=== PATIENT | female | born 1955 | race African-American/Black ===

== ENCOUNTER 2021-05-07 11:21 | Inpatient (IN) | payer MEDICARE, MEDICAID ==
[~2021-05-07] VITALS: Ht 154.9 cm; Wt 64.0 kg
[~2021-05-07 11:21] MED LIST: ASPI-1450 PO; CITA-144 PO; ESTR-95 PO; FERR325T27 PO; MULT-1239 PO; SIMV-259 PO
[2021-05-07 12:46] LABS: BASOPHILS % (AUTO) 0.5 % (0.0-2.0); EOSINOPHILS % (AUTO) 0.2 % (1.0-6.0); HEMATOCRIT 29.3 % (36-46); HEMOGLOBIN 9.1 g/dL (12.0-16.0); LYMPHOCYTES % (AUTO) 24.3 % (22.0-44.0); MEAN CORPUSCULAR HEMOGLOBIN 21.9 pg (26.0-34.0); MEAN CORPUSCULAR VOLUME 71 fL (80-100); MONOCYTES % (AUTO) 12.6 % (2.0-9.0); NEUTROPHILS # (AUTO) 5.2 K/uL (1.8-7.7); NEUTROPHILS % (AUTO) 62.4 % (40.0-70.0); PLATELET COUNT (AUTO) 428 K/uL (150-450); RED BLOOD CELL COUNT(AUTO) 4.14 MIL/uL (4.00-5.20)
[2021-05-07 12:47] LABS: ANION GAP 15 mmol/L (8-16); CALCIUM, TOTAL 9.9 mg/dL (8.8-10.5); CARBON DIOXIDE 24 mmol/L (22-29); CHLORIDE 105 mmol/L (98-107); CREATININE 0.82 mg/dL (0.60-1.30); GLOMERULAR FILTR. RATE CALC > 60 mL/min (>60); GLUCOSE,RANDOM 83 mg/dL (70-110); POTASSIUM 3.4 mmol/L (3.5-5.1); SODIUM SERUM 144 mmol/L (136-145); UREA NITROGEN, BLOOD 23 mg/dL (7-18)
[2021-05-07 12:53] LABS: ALANINE AMINOTRANSFERASE 23 U/L (12-78); ALKALINE PHOSPHATASE 68 U/L (46-116); ASPARTATE AMINOTRANSFERASE 58 U/L (15-37); BILIRUBIN,TOTAL 1.5 mg/dL (0.1-1.0); TOTAL PROTEIN, SERUM 9.5 g/dL (6.4-8.2)
[2021-05-07] MEDS ORDERED: LORazepam 1 MG TABLET PO ONE (21:30)
[2021-05-08 06:37] LABS: COVID AG,FIA SOURCE NASOPHARYNGEAL
[2021-05-08] MEDS ORDERED: OLANZapine 5 MG TABLET PO ONE (11:00)
[2021-05-08] MEDS ORDERED: LORazepam 2 MG TABLET PO PRN (12:15)
[2021-05-08] MEDS ORDERED: ZOLPIDEM TARTRATE 5 MG TABLET PO PRN (12:15)
[2021-05-08 14:18] VITALS: BP 103/77
[2021-05-08 14:24] VITALS: BP 103/77
[2021-05-08] MEDS ORDERED: MAGNESIUM HYDROXIDE SUSPENSION 30 ML UDCUP PO PRN (15:30)
[2021-05-08] MEDS ORDERED: MAG HYDROX/AL HYDROX/SIMETH ES 30 ML SUSPENSION UDCUP PO PRN (15:30)
[2021-05-08] MEDS ORDERED: CloNIDine HCL 0.1 MG TABLET PO PRN (15:30)
[2021-05-08] MEDS ORDERED: DOCUSATE SODIUM 100 MG CAPSULE PO PRN (15:30)
[2021-05-08] MEDS ORDERED: ONDANSETRON HCL 4 MG TABLET PO PRN (15:30)
[2021-05-08] MEDS ORDERED: PETROLATUM,WHITE 28 GM JELLY TP PRN (15:30)
[2021-05-08] MEDS ORDERED: LOPERAMIDE HCL 2 MG CAPSULE PO PRN (15:30)
[2021-05-08] MEDS ORDERED: ALBUTEROL SULFATE HFA 90 MCG/PUFF 8 GM INHALER IH PRN (15:30)
[2021-05-08] MEDS ORDERED: GuaiFENesin/D-METHORPHAN [SUGAR-FREE] 200-20MG/10 ML SYRUP UDCUP PO PRN (15:30)
[2021-05-08] MEDS ORDERED: NICOTINE 14 MG/24 HOUR PATCH TD PRN (15:30)
[2021-05-08] MEDS: CITALOPRAM HYDROBROMIDE 20 MG TABLET PO SCH (17:00)
[2021-05-08 17:06] VITALS: BP 107/58
[2021-05-08 17:07] VITALS: BP 107/59
[2021-05-08] MEDS: FERROUS SULFATE 325 MG EC TABLET PO SCH (17:50)
[2021-05-08 19:32] VITALS: BP 107/61
[2021-05-08] MEDS ORDERED: POTASSIUM CHLORIDE 20 MEQ ER TABLET PO ONE (20:15)
[2021-05-08] MEDS: SIMVASTATIN 10 MG TABLET PO SCH (21:14)
[2021-05-08] MEDS: RisperiDONE 0.5 MG TABLET PO SCH (21:14)
[2021-05-09] MEDS: FERROUS SULFATE 325 MG EC TABLET PO SCH ×2 (06:51→16:50)
[2021-05-09 07:45] VITALS: BP 110/72
[2021-05-09] MEDS: CITALOPRAM HYDROBROMIDE 20 MG TABLET PO SCH (09:11)
[2021-05-09] MEDS: ASPIRIN 81 MG CHEWABLE TABLET PO SCH (09:11)
[2021-05-09 11:45] VITALS: BP 112/68
[2021-05-09 17:57] VITALS: BP 97/56
[2021-05-09] MEDS: SIMVASTATIN 10 MG TABLET PO SCH (20:37)
[2021-05-09] MEDS: RisperiDONE 0.5 MG TABLET PO SCH (20:37)
[2021-05-09 22:20] VITALS: BP 148/87
[2021-05-09] MEDS: IBUPROFEN 400 MG TABLET PO PRN (22:23)
[2021-05-10] MEDS: FERROUS SULFATE 325 MG EC TABLET PO SCH ×2 (06:46→17:21)
[2021-05-10] MEDS: ASPIRIN 81 MG CHEWABLE TABLET PO SCH (08:56)
[2021-05-10] MEDS: CITALOPRAM HYDROBROMIDE 20 MG TABLET PO SCH (08:56)
[2021-05-10 10:55] VITALS: BP 110/53
[2021-05-10] MEDS: OLANZapine 5 MG TABLET PO PRN (13:24)
[2021-05-10 16:08] VITALS: BP 121/78
[2021-05-10] MEDS: RisperiDONE 0.5 MG TABLET PO SCH (21:00)
[2021-05-10] MEDS: SIMVASTATIN 10 MG TABLET PO SCH (21:00)
[2021-05-11 04:58] VITALS: BP 135/70
[2021-05-11] MEDS: FERROUS SULFATE 325 MG EC TABLET PO SCH ×2 (06:42→16:38)
[2021-05-11] MEDS: CITALOPRAM HYDROBROMIDE 20 MG TABLET PO SCH (08:20)
[2021-05-11] MEDS: ASPIRIN 81 MG CHEWABLE TABLET PO SCH (08:20)
[2021-05-11] MEDS: OLANZapine 5 MG TABLET PO PRN (08:49)
[2021-05-11 09:23] VITALS: BP 111/61
[2021-05-11 16:00] VITALS: BP 100/69
[2021-05-11] MEDS: SIMVASTATIN 10 MG TABLET PO SCH (20:56)
[2021-05-11] MEDS: RisperiDONE 1 MG TABLET PO SCH (20:56)
[2021-05-12] MEDS: FERROUS SULFATE 325 MG EC TABLET PO SCH ×2 (06:46→16:46)
[2021-05-12] MEDS: ASPIRIN 81 MG CHEWABLE TABLET PO SCH (08:26)
[2021-05-12] MEDS: CITALOPRAM HYDROBROMIDE 20 MG TABLET PO SCH (08:26)
[2021-05-12] MEDS: OLANZapine 5 MG TABLET PO PRN (08:54)
[2021-05-12 09:00] VITALS: BP 100/59
[2021-05-12 16:12] VITALS: BP 109/76
[2021-05-12 19:23] VITALS: BP 110/70
[2021-05-12] MEDS: ACETAMINOPHEN 325 MG TABLET PO PRN (19:23)
[2021-05-12] MEDS: SIMVASTATIN 10 MG TABLET PO SCH (20:06)
[2021-05-12] MEDS: RisperiDONE 1 MG TABLET PO SCH (20:06)
[2021-05-12 20:23] VITALS: BP 107/72
[2021-05-13 00:55] VITALS: BP 128/82
[2021-05-13] MEDS: ZOLPIDEM TARTRATE 10 MG TABLET PO PRN (00:58)
[2021-05-13] MEDS: IBUPROFEN 400 MG TABLET PO PRN (00:58)
[2021-05-13] MEDS: OLANZapine 5 MG TABLET PO PRN ×2 (03:54→17:41)
[2021-05-13] MEDS ORDERED: DiphenhydrAMINE HCL 50 MG/ML VIAL ONE (04:43)
[2021-05-13] MEDS ORDERED: HALOPERIDOL LACTATE 5 MG/ML VIAL ONE (04:44)
[2021-05-13] MEDS ORDERED: HALOPERIDOL LACTATE 5 MG/ML VIAL IM ONE (04:45)
[2021-05-13] MEDS ORDERED: DiphenhydrAMINE HCL 50 MG/ML VIAL IM ONE (04:45)
[2021-05-13 05:15] VITALS: BP 122/71
[2021-05-13] MEDS: FERROUS SULFATE 325 MG EC TABLET PO SCH ×2 (06:46→17:41)
[2021-05-13 09:00] VITALS: BP 110/66
[2021-05-13] MEDS: ASPIRIN 81 MG CHEWABLE TABLET PO SCH (09:06)
[2021-05-13] MEDS: CITALOPRAM HYDROBROMIDE 20 MG TABLET PO SCH (09:06)
[2021-05-13 16:00] VITALS: BP 112/69
[2021-05-13] MEDS: SIMVASTATIN 10 MG TABLET PO SCH (20:47)
[2021-05-13] MEDS: RisperiDONE 1 MG TABLET PO SCH (20:48)
[2021-05-13] MEDS: DIVALPROEX SODIUM 250 MG DR TABLET PO SCH (20:48)
[2021-05-14] MEDS: FERROUS SULFATE 325 MG EC TABLET PO SCH ×2 (07:00→17:24)
[2021-05-14] MEDS: ASPIRIN 81 MG CHEWABLE TABLET PO SCH (08:41)
[2021-05-14] MEDS: CITALOPRAM HYDROBROMIDE 20 MG TABLET PO SCH (08:42)
[2021-05-14] MEDS: DIVALPROEX SODIUM 250 MG DR TABLET PO SCH ×2 (08:42→20:31)
[2021-05-14] MEDS: RisperiDONE 1 MG TABLET PO SCH ×2 (08:42→20:31)
[2021-05-14 09:00] VITALS: BP 112/72
[2021-05-14] MEDS: OLANZapine 5 MG TABLET PO PRN ×2 (10:29→17:24)
[2021-05-14] MEDS: SIMVASTATIN 10 MG TABLET PO SCH (20:31)
[2021-05-14 22:06] LABS: COVID AG,FIA SOURCE NASOPHARYNGEAL
[2021-05-15] MEDS: FERROUS SULFATE 325 MG EC TABLET PO SCH ×2 (06:58→16:32)
[2021-05-15] MEDS: RisperiDONE 1 MG TABLET PO SCH ×2 (08:42→20:17)
[2021-05-15] MEDS: ASPIRIN 81 MG CHEWABLE TABLET PO SCH (08:42)
[2021-05-15] MEDS: DIVALPROEX SODIUM 250 MG DR TABLET PO SCH ×2 (08:42→20:17)
[2021-05-15] MEDS: CITALOPRAM HYDROBROMIDE 20 MG TABLET PO SCH (08:42)
[2021-05-15 09:00] VITALS: BP 107/66
[2021-05-15 16:05] VITALS: BP 111/73
[2021-05-15] MEDS: SIMVASTATIN 10 MG TABLET PO SCH (20:17)
[2021-05-16 03:38] VITALS: BP 130/77
[2021-05-16] MEDS: FERROUS SULFATE 325 MG EC TABLET PO SCH ×2 (06:48→16:53)
[2021-05-16] MEDS: RisperiDONE 1 MG TABLET PO SCH ×2 (09:10→21:00)
[2021-05-16] MEDS: CITALOPRAM HYDROBROMIDE 20 MG TABLET PO SCH (09:10)
[2021-05-16] MEDS: ASPIRIN 81 MG CHEWABLE TABLET PO SCH (09:10)
[2021-05-16] MEDS: DIVALPROEX SODIUM 250 MG DR TABLET PO SCH ×2 (09:10→21:00)
[2021-05-16 10:27] VITALS: BP 95/66
[2021-05-16] MEDS: OLANZapine 5 MG TABLET PO PRN (17:13)
[2021-05-16 17:53] VITALS: BP 143/94
[2021-05-16] MEDS: SIMVASTATIN 10 MG TABLET PO SCH (21:00)
[2021-05-17] MEDS: FERROUS SULFATE 325 MG EC TABLET PO SCH ×2 (06:49→17:02)
[2021-05-17 08:06] VITALS: BP 106/69
[2021-05-17] MEDS: ASPIRIN 81 MG CHEWABLE TABLET PO SCH (08:37)
[2021-05-17] MEDS: RisperiDONE 1 MG TABLET PO SCH ×2 (08:37→20:48)
[2021-05-17] MEDS: DIVALPROEX SODIUM 250 MG DR TABLET PO SCH ×2 (08:37→20:47)
[2021-05-17] MEDS: CITALOPRAM HYDROBROMIDE 20 MG TABLET PO SCH (08:38)
[2021-05-17] MEDS: OLANZapine 5 MG TABLET PO PRN (09:43)
[2021-05-17 17:07] VITALS: BP 117/60
[2021-05-17] MEDS: SIMVASTATIN 10 MG TABLET PO SCH (20:47)
[2021-05-18 00:20] VITALS: BP 121/79
[2021-05-18] MEDS: OLANZapine 5 MG TABLET PO PRN (00:26)
[2021-05-18] MEDS: FERROUS SULFATE 325 MG EC TABLET PO SCH ×2 (06:39→17:13)
[2021-05-18] MEDS: CITALOPRAM HYDROBROMIDE 20 MG TABLET PO SCH (08:53)
[2021-05-18] MEDS: RisperiDONE 1 MG TABLET PO SCH ×2 (08:53→20:33)
[2021-05-18] MEDS: DIVALPROEX SODIUM 250 MG DR TABLET PO SCH ×2 (08:53→20:33)
[2021-05-18] MEDS: ASPIRIN 81 MG CHEWABLE TABLET PO SCH (08:53)
[2021-05-18 18:04] VITALS: BP 99/69
[2021-05-18] MEDS: SIMVASTATIN 10 MG TABLET PO SCH (20:33)
[2021-05-19] MEDS: FERROUS SULFATE 325 MG EC TABLET PO SCH ×2 (06:52→16:32)
[2021-05-19] MEDS: ASPIRIN 81 MG CHEWABLE TABLET PO SCH (08:19)
[2021-05-19] MEDS: RisperiDONE 1 MG TABLET PO SCH ×2 (08:19→20:17)
[2021-05-19] MEDS: DIVALPROEX SODIUM 250 MG DR TABLET PO SCH ×2 (08:20→20:17)
[2021-05-19] MEDS: CITALOPRAM HYDROBROMIDE 20 MG TABLET PO SCH (08:20)
[2021-05-19 10:16] VITALS: BP 122/74
[2021-05-19 17:34] VITALS: BP 115/76
[2021-05-19] MEDS: SIMVASTATIN 10 MG TABLET PO SCH (20:17)
[2021-05-20] MEDS: FERROUS SULFATE 325 MG EC TABLET PO SCH ×2 (07:01→17:28)
[2021-05-20] MEDS: DIVALPROEX SODIUM 250 MG DR TABLET PO SCH ×2 (09:00→20:34)
[2021-05-20] MEDS: CITALOPRAM HYDROBROMIDE 20 MG TABLET PO SCH (09:00)
[2021-05-20] MEDS: RisperiDONE 1 MG TABLET PO SCH (09:00)
[2021-05-20] MEDS: ASPIRIN 81 MG CHEWABLE TABLET PO SCH (09:00)
[2021-05-20 17:43] VITALS: BP 107/77
[2021-05-20] MEDS: RisperiDONE 2 MG TABLET PO SCH (20:34)
[2021-05-20] MEDS: SIMVASTATIN 10 MG TABLET PO SCH (20:34)
[2021-05-21] MEDS: FERROUS SULFATE 325 MG EC TABLET PO SCH ×2 (06:54→16:21)
[2021-05-21 08:08] VITALS: BP 96/57
[2021-05-21] MEDS: ASPIRIN 81 MG CHEWABLE TABLET PO SCH (09:57)
[2021-05-21] MEDS: DIVALPROEX SODIUM 250 MG DR TABLET PO SCH ×2 (09:57→20:20)
[2021-05-21] MEDS: CITALOPRAM HYDROBROMIDE 20 MG TABLET PO SCH (09:57)
[2021-05-21] MEDS: RisperiDONE 2 MG TABLET PO SCH ×2 (09:57→20:20)
[2021-05-21 16:00] VITALS: BP 100/63
[2021-05-21] MEDS: SIMVASTATIN 10 MG TABLET PO SCH (20:20)
[2021-05-22] MEDS: FERROUS SULFATE 325 MG EC TABLET PO SCH ×2 (06:30→17:00)
[2021-05-22 08:25] LABS: COVID AG,FIA SOURCE NASAL SWAB
[2021-05-22] MEDS: DIVALPROEX SODIUM 250 MG DR TABLET PO SCH ×2 (08:59→20:55)
[2021-05-22] MEDS: CITALOPRAM HYDROBROMIDE 20 MG TABLET PO SCH (08:59)
[2021-05-22] MEDS: ASPIRIN 81 MG CHEWABLE TABLET PO SCH (09:00)
[2021-05-22] MEDS: RisperiDONE 2 MG TABLET PO SCH ×2 (09:00→20:55)
[2021-05-22 16:00] VITALS: BP 107/66
[2021-05-22] MEDS: SIMVASTATIN 10 MG TABLET PO SCH (20:55)
[2021-05-23] MEDS: FERROUS SULFATE 325 MG EC TABLET PO SCH ×2 (06:32→17:34)
[2021-05-23 09:00] VITALS: BP 104/51
[2021-05-23] MEDS: RisperiDONE 2 MG TABLET PO SCH ×2 (09:05→20:23)
[2021-05-23] MEDS: ASPIRIN 81 MG CHEWABLE TABLET PO SCH (09:05)
[2021-05-23] MEDS: CITALOPRAM HYDROBROMIDE 20 MG TABLET PO SCH (09:06)
[2021-05-23] MEDS: DIVALPROEX SODIUM 250 MG DR TABLET PO SCH ×2 (09:06→20:23)
[2021-05-23 17:17] VITALS: BP 109/60
[2021-05-23] MEDS: SIMVASTATIN 10 MG TABLET PO SCH (20:23)
[2021-05-24 04:44] VITALS: BP 109/74
[2021-05-24] MEDS: IBUPROFEN 400 MG TABLET PO PRN (04:44)
[2021-05-24] MEDS: FERROUS SULFATE 325 MG EC TABLET PO SCH ×2 (06:30→16:10)
[2021-05-24] MEDS: CITALOPRAM HYDROBROMIDE 20 MG TABLET PO SCH (08:16)
[2021-05-24] MEDS: DIVALPROEX SODIUM 250 MG DR TABLET PO SCH ×2 (08:16→20:03)
[2021-05-24] MEDS: RisperiDONE 2 MG TABLET PO SCH ×2 (08:16→20:04)
[2021-05-24] MEDS: ASPIRIN 81 MG CHEWABLE TABLET PO SCH (08:16)
[2021-05-24 09:00] VITALS: BP 129/61
[2021-05-24 16:43] VITALS: BP 108/67
[2021-05-24] MEDS: SIMVASTATIN 10 MG TABLET PO SCH (20:03)
[2021-05-25] MEDS: FERROUS SULFATE 325 MG EC TABLET PO SCH ×2 (06:31→17:11)
[2021-05-25] MEDS: DIVALPROEX SODIUM 250 MG DR TABLET PO SCH ×2 (09:46→21:02)
[2021-05-25] MEDS: RisperiDONE 2 MG TABLET PO SCH ×2 (09:46→21:02)
[2021-05-25] MEDS: ASPIRIN 81 MG CHEWABLE TABLET PO SCH (09:46)
[2021-05-25] MEDS: CITALOPRAM HYDROBROMIDE 20 MG TABLET PO SCH (09:47)
[2021-05-25 16:05] VITALS: BP 99/67
[2021-05-25] MEDS: OLANZapine 5 MG TABLET PO PRN (18:00)
[2021-05-25] MEDS: SIMVASTATIN 10 MG TABLET PO SCH (21:02)
[2021-05-26] MEDS: FERROUS SULFATE 325 MG EC TABLET PO SCH ×2 (06:47→16:35)
[2021-05-26 08:09] VITALS: BP 97/60
[2021-05-26] MEDS: RisperiDONE 2 MG TABLET PO SCH ×2 (08:31→20:18)
[2021-05-26] MEDS: DIVALPROEX SODIUM 250 MG DR TABLET PO SCH ×2 (08:31→20:18)
[2021-05-26] MEDS: ASPIRIN 81 MG CHEWABLE TABLET PO SCH (08:31)
[2021-05-26] MEDS: CITALOPRAM HYDROBROMIDE 20 MG TABLET PO SCH (08:31)
[2021-05-26 17:00] VITALS: BP 99/66
[2021-05-26] MEDS: SIMVASTATIN 10 MG TABLET PO SCH (20:18)
[2021-05-27] MEDS: FERROUS SULFATE 325 MG EC TABLET PO SCH ×2 (06:50→16:30)
[2021-05-27] MEDS: DIVALPROEX SODIUM 250 MG DR TABLET PO SCH ×2 (08:36→20:37)
[2021-05-27] MEDS: CITALOPRAM HYDROBROMIDE 20 MG TABLET PO SCH (08:36)
[2021-05-27] MEDS: RisperiDONE 2 MG TABLET PO SCH ×2 (08:36→20:37)
[2021-05-27] MEDS: ASPIRIN 81 MG CHEWABLE TABLET PO SCH (08:36)
[2021-05-27 09:03] VITALS: BP 99/72
[2021-05-27 09:35] VITALS: BP 89/79
[2021-05-27] MEDS: IBUPROFEN 400 MG TABLET PO PRN (09:35)
[2021-05-27] MEDS: OLANZapine 5 MG TABLET PO PRN (09:39)
[2021-05-27 16:10] VITALS: BP 90/69
[2021-05-27] MEDS: SIMVASTATIN 10 MG TABLET PO SCH (20:37)
[2021-05-28 01:40] VITALS: BP 122/60
[2021-05-28] MEDS: ZOLPIDEM TARTRATE 10 MG TABLET PO PRN (01:53)
[2021-05-28] MEDS: IBUPROFEN 400 MG TABLET PO PRN (01:56)
[2021-05-28] MEDS: OLANZapine 5 MG TABLET PO PRN (02:54)
[2021-05-28 03:00] VITALS: BP 105/61
[2021-05-28] MEDS: FERROUS SULFATE 325 MG EC TABLET PO SCH ×2 (07:02→16:44)
[2021-05-28] MEDS: ASPIRIN 81 MG CHEWABLE TABLET PO SCH (08:49)
[2021-05-28] MEDS: RisperiDONE 2 MG TABLET PO SCH ×2 (08:49→20:14)
[2021-05-28] MEDS: CITALOPRAM HYDROBROMIDE 20 MG TABLET PO SCH (08:50)
[2021-05-28] MEDS: DIVALPROEX SODIUM 250 MG DR TABLET PO SCH ×2 (08:50→20:14)
[2021-05-28 16:35] VITALS: BP 99/69
[2021-05-28] MEDS: SIMVASTATIN 10 MG TABLET PO SCH (20:14)
[2021-05-29] MEDS: FERROUS SULFATE 325 MG EC TABLET PO SCH ×2 (06:41→16:43)
[2021-05-29] MEDS: CITALOPRAM HYDROBROMIDE 20 MG TABLET PO SCH (09:05)
[2021-05-29] MEDS: ASPIRIN 81 MG CHEWABLE TABLET PO SCH (09:05)
[2021-05-29] MEDS: DIVALPROEX SODIUM 250 MG DR TABLET PO SCH ×2 (09:06→20:19)
[2021-05-29] MEDS: RisperiDONE 2 MG TABLET PO SCH ×2 (09:06→20:18)
[2021-05-29 10:45] VITALS: BP 97/59
[2021-05-29 14:46] LABS: COVID AG,FIA SOURCE NASAL SWAB
[2021-05-29 16:59] VITALS: BP 117/66
[2021-05-29] MEDS: SIMVASTATIN 10 MG TABLET PO SCH (20:19)
[2021-05-30] MEDS: FERROUS SULFATE 325 MG EC TABLET PO SCH ×2 (06:42→16:56)
[2021-05-30 08:36] VITALS: BP 103/64
[2021-05-30] MEDS: ASPIRIN 81 MG CHEWABLE TABLET PO SCH (09:05)
[2021-05-30] MEDS: DIVALPROEX SODIUM 250 MG DR TABLET PO SCH ×2 (09:05→20:05)
[2021-05-30] MEDS: CITALOPRAM HYDROBROMIDE 20 MG TABLET PO SCH (09:05)
[2021-05-30] MEDS: RisperiDONE 2 MG TABLET PO SCH ×2 (09:05→20:05)
[2021-05-30] MEDS: OLANZapine 5 MG TABLET PO PRN (13:19)
[2021-05-30 16:11] VITALS: BP 105/79
[2021-05-30] MEDS: SIMVASTATIN 10 MG TABLET PO SCH (20:05)
[2021-05-31] MEDS: FERROUS SULFATE 325 MG EC TABLET PO SCH ×2 (06:44→16:41)
[2021-05-31 08:08] VITALS: BP 93/60
[2021-05-31] MEDS: CITALOPRAM HYDROBROMIDE 20 MG TABLET PO SCH (08:46)
[2021-05-31] MEDS: ASPIRIN 81 MG CHEWABLE TABLET PO SCH (08:46)
[2021-05-31] MEDS: DIVALPROEX SODIUM 250 MG DR TABLET PO SCH ×2 (08:47→20:13)
[2021-05-31] MEDS: RisperiDONE 2 MG TABLET PO SCH ×2 (08:47→20:14)
[2021-05-31] MEDS: OLANZapine 5 MG TABLET PO PRN (13:11)
[2021-05-31 16:34] VITALS: BP 102/53
[2021-05-31] MEDS: SIMVASTATIN 10 MG TABLET PO SCH (20:14)
[2021-06-01] MEDS: ACETAMINOPHEN 325 MG TABLET PO PRN (05:07)
[2021-06-01 05:08] VITALS: BP 105/70
[2021-06-01] MEDS: FERROUS SULFATE 325 MG EC TABLET PO SCH ×2 (06:37→16:15)
[2021-06-01] MEDS: ASPIRIN 81 MG CHEWABLE TABLET PO SCH (09:34)
[2021-06-01] MEDS: RisperiDONE 2 MG TABLET PO SCH ×2 (09:34→20:27)
[2021-06-01] MEDS: CITALOPRAM HYDROBROMIDE 20 MG TABLET PO SCH (09:35)
[2021-06-01] MEDS: DIVALPROEX SODIUM 250 MG DR TABLET PO SCH ×2 (09:35→20:27)
[2021-06-01 12:17] VITALS: BP 108/82
[2021-06-01 16:13] VITALS: BP 111/69
[2021-06-01] MEDS: SIMVASTATIN 10 MG TABLET PO SCH (20:27)
[2021-06-02] MEDS: FERROUS SULFATE 325 MG EC TABLET PO SCH ×2 (06:35→16:32)
[2021-06-02] MEDS: RisperiDONE 2 MG TABLET PO SCH ×2 (08:36→20:15)
[2021-06-02] MEDS: ASPIRIN 81 MG CHEWABLE TABLET PO SCH (08:36)
[2021-06-02] MEDS: DIVALPROEX SODIUM 250 MG DR TABLET PO SCH ×2 (08:36→20:15)
[2021-06-02] MEDS: CITALOPRAM HYDROBROMIDE 20 MG TABLET PO SCH (08:37)
[2021-06-02 09:00] VITALS: BP 133/72
[2021-06-02 16:09] VITALS: BP 115/76
[2021-06-02 18:26] VITALS: BP 112/89
[2021-06-02] MEDS: IBUPROFEN 400 MG TABLET PO PRN (18:26)
[2021-06-02] MEDS: SIMVASTATIN 10 MG TABLET PO SCH (20:15)
[2021-06-03] MEDS: FERROUS SULFATE 325 MG EC TABLET PO SCH ×2 (06:57→17:42)
[2021-06-03] MEDS: DIVALPROEX SODIUM 250 MG DR TABLET PO SCH ×2 (10:00→21:11)
[2021-06-03] MEDS: ASPIRIN 81 MG CHEWABLE TABLET PO SCH (10:00)
[2021-06-03] MEDS: RisperiDONE 2 MG TABLET PO SCH ×2 (10:02→21:11)
[2021-06-03] MEDS: CITALOPRAM HYDROBROMIDE 20 MG TABLET PO SCH (10:02)
[2021-06-03 16:54] VITALS: BP 121/71
[2021-06-03] MEDS: SIMVASTATIN 10 MG TABLET PO SCH (21:11)
[2021-06-04] MEDS: FERROUS SULFATE 325 MG EC TABLET PO SCH ×2 (07:00→16:29)
[2021-06-04 08:44] VITALS: BP 101/62
[2021-06-04] MEDS: DIVALPROEX SODIUM 250 MG DR TABLET PO SCH ×2 (08:59→20:03)
[2021-06-04] MEDS: ASPIRIN 81 MG CHEWABLE TABLET PO SCH (08:59)
[2021-06-04] MEDS: CITALOPRAM HYDROBROMIDE 20 MG TABLET PO SCH (08:59)
[2021-06-04] MEDS: RisperiDONE 2 MG TABLET PO SCH ×2 (08:59→20:03)
[2021-06-04] MEDS: OLANZapine 5 MG TABLET PO PRN (09:57)
[2021-06-04 16:24] VITALS: BP 101/77
[2021-06-04] MEDS: SIMVASTATIN 10 MG TABLET PO SCH (20:03)
[2021-06-05] MEDS: FERROUS SULFATE 325 MG EC TABLET PO SCH ×2 (06:36→16:08)
[2021-06-05 08:00] VITALS: BP 107/72
[2021-06-05] MEDS: DIVALPROEX SODIUM 250 MG DR TABLET PO SCH ×2 (09:06→20:07)
[2021-06-05] MEDS: ASPIRIN 81 MG CHEWABLE TABLET PO SCH (09:06)
[2021-06-05] MEDS: CITALOPRAM HYDROBROMIDE 20 MG TABLET PO SCH (09:06)
[2021-06-05] MEDS: RisperiDONE 2 MG TABLET PO SCH ×2 (09:06→20:07)
[2021-06-05 16:11] LABS: COVID AG,FIA SOURCE NASOPHARYNGEAL
[2021-06-05 17:05] VITALS: BP 104/70
[2021-06-05 17:33] VITALS: BP 108/82
[2021-06-05] MEDS: ACETAMINOPHEN 325 MG TABLET PO PRN (17:33)
[2021-06-05 18:33] VITALS: BP 107/72
[2021-06-05] MEDS: SIMVASTATIN 10 MG TABLET PO SCH (20:07)
[2021-06-06] MEDS: FERROUS SULFATE 325 MG EC TABLET PO SCH ×2 (06:52→16:13)
[2021-06-06] MEDS: ASPIRIN 81 MG CHEWABLE TABLET PO SCH (08:26)
[2021-06-06] MEDS: RisperiDONE 2 MG TABLET PO SCH ×2 (08:27→20:09)
[2021-06-06] MEDS: CITALOPRAM HYDROBROMIDE 20 MG TABLET PO SCH (08:27)
[2021-06-06] MEDS: DIVALPROEX SODIUM 250 MG DR TABLET PO SCH ×2 (08:27→20:09)
[2021-06-06] MEDS: ACETAMINOPHEN 325 MG TABLET PO PRN (09:33)
[2021-06-06 09:34] VITALS: BP_SYST 83
[2021-06-06 10:53] VITALS: BP 84/51
[2021-06-06 16:16] VITALS: BP 102/77
[2021-06-06] MEDS: SIMVASTATIN 10 MG TABLET PO SCH (20:09)
[2021-06-07] MEDS: FERROUS SULFATE 325 MG EC TABLET PO SCH ×2 (06:40→16:53)
[2021-06-07] MEDS: CITALOPRAM HYDROBROMIDE 20 MG TABLET PO SCH (08:39)
[2021-06-07] MEDS: DIVALPROEX SODIUM 250 MG DR TABLET PO SCH ×2 (08:39→20:06)
[2021-06-07] MEDS: ASPIRIN 81 MG CHEWABLE TABLET PO SCH (08:39)
[2021-06-07] MEDS: RisperiDONE 2 MG TABLET PO SCH ×2 (08:39→20:06)
[2021-06-07 09:26] VITALS: BP 119/84
[2021-06-07 16:57] VITALS: BP 99/69
[2021-06-07] MEDS: SIMVASTATIN 10 MG TABLET PO SCH (20:06)
[2021-06-08] MEDS: FERROUS SULFATE 325 MG EC TABLET PO SCH ×2 (06:42→17:00)
[2021-06-08 08:00] VITALS: BP 97/70
[2021-06-08] MEDS: ASPIRIN 81 MG CHEWABLE TABLET PO SCH (09:32)
[2021-06-08] MEDS: CITALOPRAM HYDROBROMIDE 20 MG TABLET PO SCH (09:32)
[2021-06-08] MEDS: RisperiDONE 2 MG TABLET PO SCH ×2 (09:32→21:38)
[2021-06-08] MEDS: DIVALPROEX SODIUM 250 MG DR TABLET PO SCH ×2 (09:32→21:38)
[2021-06-08 16:53] VITALS: BP 103/65
[2021-06-08] MEDS: SIMVASTATIN 10 MG TABLET PO SCH (21:38)
[2021-06-09] MEDS: FERROUS SULFATE 325 MG EC TABLET PO SCH ×2 (06:51→16:11)
[2021-06-09 08:00] VITALS: BP 121/71
[2021-06-09] MEDS: DIVALPROEX SODIUM 250 MG DR TABLET PO SCH ×2 (08:09→20:09)
[2021-06-09] MEDS: ASPIRIN 81 MG CHEWABLE TABLET PO SCH (08:09)
[2021-06-09] MEDS: CITALOPRAM HYDROBROMIDE 20 MG TABLET PO SCH (08:09)
[2021-06-09] MEDS: RisperiDONE 2 MG TABLET PO SCH ×2 (08:09→20:09)
[2021-06-09 16:29] VITALS: BP 110/69
[2021-06-09] MEDS: SIMVASTATIN 10 MG TABLET PO SCH (20:09)
[2021-06-10] MEDS: FERROUS SULFATE 325 MG EC TABLET PO SCH ×2 (06:47→16:44)
[2021-06-10 09:00] VITALS: BP 107/62
[2021-06-10] MEDS: RisperiDONE 2 MG TABLET PO SCH ×2 (09:35→20:19)
[2021-06-10] MEDS: DIVALPROEX SODIUM 250 MG DR TABLET PO SCH ×2 (09:35→20:19)
[2021-06-10] MEDS: ASPIRIN 81 MG CHEWABLE TABLET PO SCH (09:35)
[2021-06-10] MEDS: CITALOPRAM HYDROBROMIDE 20 MG TABLET PO SCH (09:36)
[2021-06-10] MEDS: SIMVASTATIN 10 MG TABLET PO SCH (09:36)
[2021-06-10 18:12] VITALS: BP 106/61
[2021-06-11] MEDS: FERROUS SULFATE 325 MG EC TABLET PO SCH ×2 (06:44→16:38)
[2021-06-11 08:42] VITALS: BP 106/62
[2021-06-11] MEDS: CITALOPRAM HYDROBROMIDE 20 MG TABLET PO SCH (08:55)
[2021-06-11] MEDS: ASPIRIN 81 MG CHEWABLE TABLET PO SCH (08:55)
[2021-06-11] MEDS: RisperiDONE 2 MG TABLET PO SCH ×2 (08:55→20:07)
[2021-06-11] MEDS: DIVALPROEX SODIUM 250 MG DR TABLET PO SCH ×2 (08:55→20:07)
[2021-06-11 16:09] VITALS: BP 117/64
[2021-06-11] MEDS: SIMVASTATIN 10 MG TABLET PO SCH (20:07)
[2021-06-12] MEDS: FERROUS SULFATE 325 MG EC TABLET PO SCH ×2 (06:44→17:07)
[2021-06-12] MEDS: DIVALPROEX SODIUM 250 MG DR TABLET PO SCH ×2 (08:30→20:17)
[2021-06-12] MEDS: RisperiDONE 2 MG TABLET PO SCH ×2 (08:30→20:17)
[2021-06-12] MEDS: ASPIRIN 81 MG CHEWABLE TABLET PO SCH (08:30)
[2021-06-12] MEDS: CITALOPRAM HYDROBROMIDE 20 MG TABLET PO SCH (08:30)
[2021-06-12 16:23] VITALS: BP 108/64
[2021-06-12] MEDS: SIMVASTATIN 10 MG TABLET PO SCH (20:17)
[2021-06-13] MEDS: FERROUS SULFATE 325 MG EC TABLET PO SCH ×2 (06:38→17:05)
[2021-06-13 08:30] VITALS: BP 96/64
[2021-06-13] MEDS: ASPIRIN 81 MG CHEWABLE TABLET PO SCH (09:27)
[2021-06-13] MEDS: DIVALPROEX SODIUM 250 MG DR TABLET PO SCH ×2 (09:27→20:04)
[2021-06-13] MEDS: CITALOPRAM HYDROBROMIDE 20 MG TABLET PO SCH (09:27)
[2021-06-13] MEDS: RisperiDONE 2 MG TABLET PO SCH ×2 (09:27→20:04)
[2021-06-13 15:14] LABS: COVID AG,FIA SOURCE NASOPHARYNGEAL
[2021-06-13 16:33] VITALS: BP 107/70
[2021-06-13] MEDS: SIMVASTATIN 10 MG TABLET PO SCH (20:04)
[2021-06-14] MEDS: FERROUS SULFATE 325 MG EC TABLET PO SCH ×2 (06:32→16:54)
[2021-06-14] MEDS: DIVALPROEX SODIUM 250 MG DR TABLET PO SCH ×2 (09:13→20:29)
[2021-06-14] MEDS: ASPIRIN 81 MG CHEWABLE TABLET PO SCH (09:13)
[2021-06-14] MEDS: RisperiDONE 2 MG TABLET PO SCH ×2 (09:13→20:29)
[2021-06-14] MEDS: CITALOPRAM HYDROBROMIDE 20 MG TABLET PO SCH (09:13)
[2021-06-14 11:37] VITALS: BP 105/61
[2021-06-14 16:34] VITALS: BP 97/58
[2021-06-14] MEDS: SIMVASTATIN 10 MG TABLET PO SCH (20:29)
[2021-06-15] MEDS: FERROUS SULFATE 325 MG EC TABLET PO SCH ×2 (06:35→16:25)
[2021-06-15 08:00] VITALS: BP 127/78
[2021-06-15] MEDS: DIVALPROEX SODIUM 250 MG DR TABLET PO SCH ×2 (10:14→20:25)
[2021-06-15] MEDS: CITALOPRAM HYDROBROMIDE 20 MG TABLET PO SCH (10:14)
[2021-06-15] MEDS: RisperiDONE 2 MG TABLET PO SCH ×2 (10:16→20:26)
[2021-06-15] MEDS: ASPIRIN 81 MG CHEWABLE TABLET PO SCH (10:16)
[2021-06-15 17:06] VITALS: BP 105/69
[2021-06-15] MEDS: SIMVASTATIN 10 MG TABLET PO SCH (20:25)
[2021-06-15] MEDS: ZOLPIDEM TARTRATE 10 MG TABLET PO PRN (20:30)
[2021-06-16 05:03] VITALS: BP 117/76
[2021-06-16] MEDS: FERROUS SULFATE 325 MG EC TABLET PO SCH ×2 (06:48→16:34)
[2021-06-16 09:00] VITALS: BP 124/81
[2021-06-16] MEDS: RisperiDONE 2 MG TABLET PO SCH ×2 (09:19→20:05)
[2021-06-16] MEDS: DIVALPROEX SODIUM 250 MG DR TABLET PO SCH ×2 (09:19→20:05)
[2021-06-16] MEDS: CITALOPRAM HYDROBROMIDE 20 MG TABLET PO SCH (09:19)
[2021-06-16] MEDS: ASPIRIN 81 MG CHEWABLE TABLET PO SCH (09:19)
[2021-06-16 17:01] VITALS: BP 138/83
[2021-06-16] MEDS: SIMVASTATIN 10 MG TABLET PO SCH (20:05)
[2021-06-17] MEDS: FERROUS SULFATE 325 MG EC TABLET PO SCH ×2 (06:31→16:58)
[2021-06-17] MEDS: DIVALPROEX SODIUM 250 MG DR TABLET PO SCH ×2 (09:07→20:23)
[2021-06-17] MEDS: CITALOPRAM HYDROBROMIDE 20 MG TABLET PO SCH (09:07)
[2021-06-17] MEDS: ASPIRIN 81 MG CHEWABLE TABLET PO SCH (09:08)
[2021-06-17] MEDS: RisperiDONE 2 MG TABLET PO SCH ×2 (09:08→20:22)
[2021-06-17 09:34] VITALS: BP 102/58
[2021-06-17] MEDS: SIMVASTATIN 10 MG TABLET PO SCH (20:23)
[2021-06-18] MEDS: FERROUS SULFATE 325 MG EC TABLET PO SCH ×2 (06:35→16:39)
[2021-06-18] MEDS: ASPIRIN 81 MG CHEWABLE TABLET PO SCH (09:22)
[2021-06-18] MEDS: RisperiDONE 2 MG TABLET PO SCH ×2 (09:22→20:18)
[2021-06-18] MEDS: CITALOPRAM HYDROBROMIDE 20 MG TABLET PO SCH (09:22)
[2021-06-18] MEDS: DIVALPROEX SODIUM 250 MG DR TABLET PO SCH ×2 (09:22→20:18)
[2021-06-18 10:43] VITALS: BP 117/84
[2021-06-18] MEDS: SIMVASTATIN 10 MG TABLET PO SCH (20:18)
[2021-06-19] MEDS: FERROUS SULFATE 325 MG EC TABLET PO SCH ×2 (06:49→17:07)
[2021-06-19 09:06] VITALS: BP 104/68
[2021-06-19] MEDS: CITALOPRAM HYDROBROMIDE 20 MG TABLET PO SCH (09:34)
[2021-06-19] MEDS: ASPIRIN 81 MG CHEWABLE TABLET PO SCH (09:34)
[2021-06-19] MEDS: RisperiDONE 2 MG TABLET PO SCH ×2 (09:34→20:07)
[2021-06-19] MEDS: DIVALPROEX SODIUM 250 MG DR TABLET PO SCH ×2 (09:40→20:28)
[2021-06-19 16:54] VITALS: BP 105/71
[2021-06-19] MEDS: SIMVASTATIN 10 MG TABLET PO SCH (20:07)
[2021-06-20] MEDS: FERROUS SULFATE 325 MG EC TABLET PO SCH ×2 (06:32→16:56)
[2021-06-20] MEDS: DIVALPROEX SODIUM 250 MG DR TABLET PO SCH ×2 (08:48→20:53)
[2021-06-20] MEDS: ASPIRIN 81 MG CHEWABLE TABLET PO SCH (08:48)
[2021-06-20] MEDS: RisperiDONE 2 MG TABLET PO SCH ×2 (08:49→20:53)
[2021-06-20] MEDS: CITALOPRAM HYDROBROMIDE 20 MG TABLET PO SCH (08:49)
[2021-06-20 09:00] VITALS: BP 116/72
[2021-06-20 12:10] LABS: COVID AG,FIA SOURCE NASOPHARYNGEAL
[2021-06-20 16:19] VITALS: BP 110/76
[2021-06-20] MEDS: SIMVASTATIN 10 MG TABLET PO SCH (20:53)
[2021-06-21] MEDS: FERROUS SULFATE 325 MG EC TABLET PO SCH ×2 (06:33→16:49)
[2021-06-21 09:00] VITALS: BP 118/75
[2021-06-21] MEDS: RisperiDONE 2 MG TABLET PO SCH ×2 (09:29→20:17)
[2021-06-21] MEDS: DIVALPROEX SODIUM 250 MG DR TABLET PO SCH ×2 (09:29→20:17)
[2021-06-21] MEDS: ASPIRIN 81 MG CHEWABLE TABLET PO SCH (09:29)
[2021-06-21] MEDS: CITALOPRAM HYDROBROMIDE 20 MG TABLET PO SCH (09:30)
[2021-06-21 17:31] VITALS: BP 109/75
[2021-06-21] MEDS: SIMVASTATIN 10 MG TABLET PO SCH (20:17)
[2021-06-22] MEDS: FERROUS SULFATE 325 MG EC TABLET PO SCH ×2 (06:36→16:06)
[2021-06-22 08:05] VITALS: BP 118/78
[2021-06-22] MEDS: RisperiDONE 2 MG TABLET PO SCH ×2 (09:35→20:12)
[2021-06-22] MEDS: DIVALPROEX SODIUM 250 MG DR TABLET PO SCH ×2 (09:35→20:12)
[2021-06-22] MEDS: CITALOPRAM HYDROBROMIDE 20 MG TABLET PO SCH (09:35)
[2021-06-22] MEDS: ASPIRIN 81 MG CHEWABLE TABLET PO SCH (09:35)
[2021-06-22 17:14] VITALS: BP 109/78
[2021-06-22] MEDS: SIMVASTATIN 10 MG TABLET PO SCH (20:12)
[2021-06-23] MEDS: FERROUS SULFATE 325 MG EC TABLET PO SCH (06:40)
[2021-06-23] MEDS: DIVALPROEX SODIUM 250 MG DR TABLET PO SCH (10:55)
[2021-06-23] MEDS: CITALOPRAM HYDROBROMIDE 20 MG TABLET PO SCH (10:55)
[2021-06-23] MEDS: RisperiDONE 2 MG TABLET PO SCH (10:56)
[2021-06-23] MEDS: ASPIRIN 81 MG CHEWABLE TABLET PO SCH (10:57)
[2021-06-23] MEDS ORDERED: DIVA-111 PO (11:22)
[2021-06-23] MEDS ORDERED: CITA-144 PO (11:22)
[2021-06-23] MEDS ORDERED: RISP2TAB86 PO (11:22)
[2021-06-23] MEDS: OLANZapine 5 MG TABLET PO PRN (13:10)
== END 2021-06-23 13:25 | disposition home or self-care (01) | DRG 885 ==
LOC: EMS 11:21 → 3EX 05-08 03:01
PROVIDERS: ADMIT Psychiatry & Neurology Psychiatry; ATTEND Psychiatry & Neurology Psychiatry
DX: F31.5 Bipolar disorder, current episode depressed, severe, with psychotic features (principal); F03.91 Unspecified dementia, unspecified severity, with behavioral disturbance; D64.9 Anemia, unspecified; Z20.822 Contact with and (suspected) exposure to COVID-19; E78.5 Hyperlipidemia, unspecified; I10 Essential (primary) hypertension; K59.00 Constipation, unspecified; Z59.00 Homelessness unspecified; M19.90 Unspecified osteoarthritis, unspecified site; K21.9 Gastro-esophageal reflux disease without esophagitis; F41.9 Anxiety disorder, unspecified; Z91.013 Allergy to seafood
CPT/HCPCS: 70486; 80053; 80164; 84132; 85025; 99285; G0378; G0480; J1200; J1630